=== PATIENT | male | born 1965 | race Caucasian/White ===

== ENCOUNTER 2017-02-06 14:53 | Inpatient (IN) | payer OTHER ==
[~2017-02-06] VITALS: Ht 195.6 cm; Wt 140.5 kg
[2017-02-06 21:15] VITALS: BP 111/59; PULSE 84; RESP 19
[2017-02-06 22:30] VITALS: Ht 195.6 cm; Wt 140.5 kg
[2017-02-06] MEDS ORDERED: [UNRECOGNIZED DRUG - CODE] SC (23:52)
[2017-02-06] MEDS ORDERED: ACET-2158 GTB (23:52)
[2017-02-06] MEDS ORDERED: AMLO2.5T78 GTB (23:52)
[2017-02-06] MEDS ORDERED: LACHYD12 TOP (23:52)
[2017-02-06] MEDS ORDERED: CLOT15CR55 TOP (23:52)
[2017-02-06] MEDS ORDERED: LACT1TAB11 GTB (23:52)
[2017-02-06] MEDS ORDERED: FURO40TA4 GTB (23:52)
[2017-02-06] MEDS ORDERED: IPRA3AMP INHALATION (23:52)
[2017-02-06] MEDS ORDERED: LISI40TA9 GTB (23:52)
[2017-02-06] MEDS ORDERED: TRAM50TA2 GTB (23:52)
[2017-02-06] MEDS ORDERED: DOCU50LI11 GTB (23:52)
[2017-02-06] MEDS ORDERED: LEVE100S GTB (23:52)
[2017-02-06] MEDS ORDERED: TEMA30CA GTB (23:52)
[2017-02-06] MEDS ORDERED: MAGN400O4 GTB (23:52)
[2017-02-06] MEDS ORDERED: BUSP5TAB20 (23:52)
[2017-02-06] MEDS ORDERED: LANT3I SC (23:52)
[2017-02-07] MEDS ORDERED: GLUCOSE GEL 15 GRAM TUBE BUCCAL PRN
[2017-02-07] MEDS ORDERED: GLUCOSE GEL 15 GRAM TUBE PO PRN ×2
[2017-02-07] MEDS ORDERED: GLUCAGON 1 MG INJ IM PRN
[2017-02-07] MEDS ORDERED: DEXTROSE 50% 50 ML SYRINGE IV PRN ×2
[2017-02-07] MEDS: DEXTROSE 5%-0.45% NACL 1,000 ML IV SCH (00:16)
[2017-02-07] MEDS: INSULIN ASPART [NOVOLOG] 3 ML PEN SC SCH ×6 (01:00→21:00)
[2017-02-07] MEDS: ALBUTEROL/IPRATROPIUM (NEB) 3 ML AMP INH SCH ×3 (02:00→19:29)
[2017-02-07] MEDS ORDERED: NACL 0.9% 3 ML SYG IV SCH (02:30)
[2017-02-07] MEDS ORDERED: ONDANSETRON 4 MG INJ IV PRN ×2 (02:30→13:00)
[2017-02-07] MEDS ORDERED: hydrALAzine 20 MG INJ IV PRN ×2 (02:30→13:00)
--- NOTE | 2017-02-07 02:34 | HP ---
Date/Time of Note Date/Time of Note DATE: 02/07/17 TIME: 02:27 Assessment/Plan VTE Prophylaxis VTE Prophylaxis Intervention: heparin Lines/Catheters IV Catheter Type (from [facility]): Peripheral IV Central line still needed: No Urinary Cath still in place: No Assessment/Plan Chief Complaint/Hosp Course This is a 51-year-old male being admitted to [facility] floor for: #1 malnutrition/food intolerance: Patient's G-tube was removed. He is not able to swallow orally secondary to his CVA. Patient will need another G-tube placed. Will consult GI. We will switch some of his medications to IV: And resume other G-tube medications once the G-tube is in place. #2 CVA: Based on his history it appears that he suffered CVA in October 2016 resulting in complete right-sided upper and lower extremity paralysis. Continue supportive care at this time. #3 diabetes: Patient is currently n.p.o. we will put patient on D5 half-normal saline at 50 cc an hour. Start him on insulin sliding scale coverage #4 hypertension: Hold G-tube medication at this time, will put patient on hydralazine 10 mg IV every 6 hours as needed. Hold amlodipine, lisinopril #5 seizure prophylaxis: We will put patient on Keppra 1000 mg IV every 12 hours as discussed with pharmacy based on his oral dose. #6 anxiety: Hold buspirone, will put patient on IV Ativan 0.5 mg as needed #7 DVT GI prophylaxis: Heparin subq, Protonix Problems: HPI/ROS Admit Date/Time Admit Date/Time February 06, 2017 at 20:46 Hx of Present Illness This is a 51-year-old [facility]. Patient has been residing at a [facility] after experiencing a stroke in October 2016. As result of the CVA he was left paralyzed on the right side. Patient had a G-tube put in secondary to dysfunctioning of swallowing secondary likely to a CVA. He states that the G-tube just fell out. Patient also is trached. Allergies: None Medications: See MAR ROS Const: Negative for fever, chills, weight gain or weight loss, fatigue, or diaphoresis Eyes : No pain discharge or redness or change in visual acuity ENT: No pain, sore throat, congestion, congestion, dysphagia or discharge Respiratory: No shortness of breath, cough, sputum, wheezing, or pleuritic pain Cardiovascular: No chest pain, palpitation, PND, or edema GI : Negative except for what stated in the HPI Genitourinary: No dysuria, hematuria, flank pain , discharge or CVA tenderness Musculoskeletal: No joint pain, back pain, neck pain, restricted range of motion in neck or joints Skin: No rash, bruising or hives Neuro: No headache, dizziness, syncope, seizure, focal weakness Endocrine: No polyuria, polydipsia, temperature intolerance Psych: No hallucination, depression, anxiety or suicidal ideation PMH/Family/Social Past Medical History CVA, hypertension, diabetes mellitus, Past Surgical History Trach placement, G-tube placement Family History Significant Family History: no pertinent family hx Social History Smoking Status: Former smoker (1 pack per day 40 years, last cigarette he had was in October 2016) Exam/Review of Systems Vital Signs Vitals Vital Signs Date Time Temp Pulse Resp B/P Pulse Ox O2 Delivery O2 Flow Rate FiO2 02/06/17 21:15 97.8 84 19 111/59 96 02/06/17 21:10 5.0 28 Exam Exam General: This is an obese male in no acute distress The patient is alert oriented -3 HEENT: Atraumatic, normocephalic. The pupils are equal, round and reactive. Extraocular motor are intact, very poor dentition Neck: Supple with full range of motion. No rigidity or meningismus, trach in place Chest: Nontender Lungs: Clear to auscultation bilaterally no crackles rales or wheezing Heart: Normal S1-S2, Regular rhythm and rate. Abdomen: Soft , nontender, nondistended , bowel sounds are present. Previous site of G-tube insertion covered clean dry and intact Extremities: Normal to inspection, no edema no cyanosis, strength 5 out of 5 in the upper left and right extremities, strength 0 out of 5 in the right upper and lower extremity Neurologic: Patient is paralyzed on the right side secondary to CVA, patient also does appear to have some memory lapses. Medications Medications Current Medications Dextrose/Sodium Chloride (D5-1/2ns) 1,000 ml @ 75 mls/hr [id number] IV Last administered on 02/07/17t 00:16; Admin Dose 75 MLS/HR; Start 02/07/17 at 00:00 Insulin Aspart (Novolog Insulin Pen) NOVOLOG *MILD* ALGORI... Q4 SC ; Start 02/07 at 01:00 Miscellaneous Information 1 ea NOTE XX ; Start 02/07/17 at 00:00 Glucose (Glutose) 15 gm Q15M PRN PO DECREASED GLUCOSE; Start 02/07/17 at 00:00 Glucose (Glutose) 22.5 gm Q15M PRN PO DECREASED GLUCOSE; Start 02/07/17 at 00:00 Dextrose (D50w Syringe) 25 ml Q15M PRN IV DECREASED GLUCOSE; Start 02/07/17 at 00:00 Dextrose (D50w Syringe) 50 ml Q15M PRN IV DECREASED GLUCOSE; Start 02/07/17 at 00:00 Glucagon (Glucagen) 1 mg Q15M PRN IM DECREASED GLUCOSE; Start 02/07/17 at 00:00 Glucose (Glutose) 15 gm Q15M PRN BUCCAL DECREASED GLUCOSE; Start 02/07/17 at 00: 00 Ammonium Lactate (Lac-Hydrin 12% Lotion) 1 applic BID TOP ; Start 02/07/17 at 03: 00 Clotrimazole (Lotrimin Cr) 1 applic DAILY TOP ; Start 02/07/17 at 09:00 Insulin Glargine 13 unit 13 unit QHS SC ; Start 02/07/17 at 21:00 Levetiracetam (Keppra 1,000mg/ 100ml (Pmx)) 100 ml @ 400 mls/hr Q12 IVPB ; Start 02/07/17 at 03:00 Ondansetron HCl (Zofran Inj) 4 mg Q6H PRN IV NAUSEA AND/OR VOMITING; Start 02/07 at 02:30 Pantoprazole (Protonix Iv) 40 mg DAILY@06 IV ; Start 02/07/17 at 06:00 Heparin Sodium (Porcine) (Heparin (5000 Units/0.5 ml)) 5,000 unit Q8 SC ; Start 02/07/17 at 06:00 Hydralazine HCl (Apresoline) 10 mg Q8H PRN IV ELEVATED BLOOD PRESSURE; Start at 02:30 IRENE ANNE February 07, 2017 02:34
[2017-02-07] MEDS ORDERED: LORAZEPAM 2 MG INJ IV PRN (03:00)
[2017-02-07 03:12] LABS: ADD SCAN DIFF NO
[2017-02-07 03:36] LABS: BASOPHILS % 0.4 % (0.0-2.0); EOSINOPHILS # 0.1 10^3/ul (0.0-0.5); EOSINOPHILS % 1.1 % (0.0-7.0); HEMOGLOBIN 11.4 g/dl (14.0-18.0); LYMPHOCYTES # 1.4 10^3/ul (0.8-2.9); LYMPHOCYTES % 20.2 % (15.0-51.0); MEAN CORPUSCULAR HEMOGLOBIN 31.3 pg (29.0-33.0); MEAN CORPUSCULAR HGB CONC 33.5 g/dl (32.0-37.0); MEAN CORPUSCULAR VOLUME 93.4 fl (82.0-101.0); MEAN PLATELET VOLUME 9.8 fl (7.4-10.4); MONOCYTE # 0.6 10^3/ul (0.3-0.9); NEUTROPHIL # 4.8 10^3/ul (1.6-7.5); NEUTROPHILS % 68.2 % (39.0-77.0); PLATELET COUNT 248 10^3/UL (140-415); RED BLOOD COUNT 3.64 10^6/ul (4.70-6.10); RED CELL DISTRIBUTION WIDTH 12.7 % (11.5-14.5)
[2017-02-07 03:37] LABS: INR 1.02; PARTIAL THROMBOPLASTIN TIME 35.4 Sec (25.0-35.0); POTASSIUM 3.8 mmol/L (3.5-5.1); PROTIME 13.4 Sec (12.2-14.2)
[2017-02-07 03:40] LABS: CREATININE 1.09 mg/dl (0.61-1.24)
[2017-02-07 03:41] LABS: CALCIUM 9.7 mg/dl (8.4-10.2)
[2017-02-07] MEDS: LEVETIRACETAM 1000 MG (PMX) 100 ML IVPB SCH ×3 (05:18→21:13)
[2017-02-07] MEDS: PANTOPRAZOLE 40 MG INJ IV SCH (05:44)
[2017-02-07] MEDS: AMMONIUM LACTATE 12% 225 GM LOT TOP SCH ×3 (05:44→21:13)
[2017-02-07] MEDS: HEPARIN 5,000 UNIT/0.5 ML VIAL SC SCH ×3 (05:54→21:37)
[2017-02-07 07:51] VITALS: BP 89/51; RESP 22
[2017-02-07] MEDS ORDERED: CEFAZOLIN 2 GM in SOD CHLORIDE 0.9% 50 ML IVPB ONE (08:30)
[2017-02-07] MEDS: CLOTRIMAZOLE 1% 30 GM CR TOP SCH (10:04)
--- NOTE | 2017-02-07 11:02 | PN ---
DATE: 02/07/2017 SUBJECTIVE: Mr. Rasuch remains stable. No new events this morning, pending GI evaluation for G- tube replacement. He is awake, alert, comfortable, in no acute distress. VITAL SIGNS: Temperature 98, pulse 72, blood pressure 90/50, O2 saturation 96% on cool aerosol. NECK: Trach site clean and intact. CARDIAC: S1, S2, no added sounds or murmurs. CHEST: Diminished air entry bilaterally. ABDOMEN: Soft, nontender. No guarding or rebound. EXTREMITIES: No cyanosis, clubbing, edema. NEUROLOGIC: Generalized weakness. IMPRESSION AND PLAN: 1. History of chronic respiratory failure with tracheostomy. 2. History of cerebrovascular accident with hemiplegia. 3. G-tube malfunction. 4. History of hypertension. PLAN: 1. G-tube to be replaced today by Dr. Boyce. 2. Initiate tube feeding as tolerated. 3. Continue pulmonary toilet. 4. Deep venous thrombosis and gastrointestinal prophylaxis. 5. Anticipate discharge tomorrow. Dictated By: KELLY MAYO/BRAYAN Conf#: [id number] DID#: [id number]
--- NOTE | 2017-02-07 11:50 | CONS ---
Date/Time of Note Date/Time of Note DATE: 02/07/17 TIME: 11:47 Assessment/Plan Assessment/Plan Additional Assessment/Plan Assessment recommendations; next 1. Patient admitted for G-tube dislodgment status post replacement. 2. Chronic respiratory failure, maintained on tracheostomy with Passy-Underhill valve. 3. History of CVA, diabetes, hypertension, seizure disorder. 4. Currently no evidence of any infective process. Continue current treatment. [facility] Consider decannulation of tracheostomy. Consultation Date/Type/Reason Admit Date/Time February 06, 2017 at 20:46 Date of Consultation: February 07, 2017 Type of Consultation: Pulmonary Reason for Consultation Pulmonary consultations obtained for evaluation of chronic respiratory failure. History presenting any; patient is a 51-year-old male who was admitted yesterday [facility] with G-tube dislodgment. Patient had a subsequent replacement. He denies any shortness of breath, chest pain, abdominal pain, nausea vomiting. Denies any fever chills. Past medical history; 1. Patient with history of chronic respiratory failure, maintained on tracheostomy with Passy-Underhill valve. 2. History of CVA with resulting dense right hemiplegia. 3. History of diabetes, hypertension, seizure disorder. 4. History of G-tube placement. Medications; were reviewed. Allergies; none. Family history; various family members of diabetes hypertension in the family Occupational history; patient currently on disability. Review systems; patient denies any headache, visual changes. Denies any recent seizure activity. Place of chronic dysphagia. Denies any chest pain, shortness of breath. Any wheezing. Cough or sputum production. Denies abdominal pain, nausea vomiting. Any fever chills. General exam; middle-aged male, awake alert currently in no distress. Social History Smoking Status: Former smoker (1 pack per day 40 years, last cigarette he had was in October 2016) Exam/Review of Systems Vital Signs Vitals Vital Signs Date Time Temp Pulse Resp B/P Pulse Ox O2 Delivery O2 Flow Rate FiO2 02/07/17 08:57 72 12 Aerosol 5.0 28 02/07/17 07:51 98.3 89/51 96 Intake and Output 02/06/17 02/06/17 02/07/17 15:00 23:00 07:00 Intake Total 550 ml Balance 550 ml Exam HEENT exam is; supple neck, no JVD. No lymphadenopathy. Midline trachea. No thyromegaly. Patient's dentition is fair. Pupils are small bilaterally reactive to light. No thyromegaly. No neck bruits. No neck masses. Chest examination; clear to auscultation. There is a tracheostomy in place with clean insertion site. S1-S2 audible, no murmurs. Regular rhythm. Abdomen examination; soft, nontender. No organomegaly. Normal distended. G- tube in place. Extremity examination; no peripheral edema. Pulses 1+ bilaterally. ACID LOADER examination; patient has dense right hemiplegia. Results Result Diagram: 02/07/17 0240 02/07/17 0240 Results 24 hrs Laboratory Tests Test 02/06/17 22:59 02/07/17 01:41 02/07/17 02:40 02/07/17 05:47 Bedside Glucose 112 113 116 White Blood Count 7.0 Red Blood Count 3.64 L Hemoglobin 11.4 L Hematocrit 34.0 L Mean Corpuscular Volume 93.4 Mean Corpuscular Hemoglobin 31.3 Mean Corpuscular Hemoglobin Concent 33.5 Red Cell Distribution Width 12.7 Platelet Count 248 Mean Platelet Volume 9.8 Neutrophils % 68.2 Lymphocytes % 20.2 Monocytes % 9.0 Eosinophils % 1.1 Basophils % 0.4 Nucleated Red Blood Cells % 0.0 Neutrophils # 4.8 Lymphocytes # 1.4 Monocytes # 0.6 Eosinophils # 0.1 Basophils # 0.0 Nucleated Red Blood Cells # 0.0 Prothrombin Time 13.4 Prothrombin Time Ratio 1.0 INR International Normalized Ratio 1.02 Activated Partial Thromboplast Time 35.4 H Sodium Level 140 Potassium Level 3.8 Chloride Level 95 L Carbon Dioxide Level 31 Anion Gap 18 H Blood Urea Nitrogen 36 H Creatinine 1.09 Glucose Level 148 Calcium Level 9.7 Test 02/07/17 09:11 Bedside Glucose 150 Medications Medications Current Medications Dextrose/Sodium Chloride (D5-1/2ns) 1,000 ml @ 75 mls/hr [id number] IV Last administered on 02/07/17t 00:16; Admin Dose 75 MLS/HR; Start 02/07/17 at 00:00 Insulin Aspart (Novolog Insulin Pen) NOVOLOG *MILD* ALGORI... Q4 SC ; Start 02/07 at 01:00 Miscellaneous Information 1 ea NOTE XX ; Start 02/07/17 at 00:00 Glucose (Glutose) 15 gm Q15M PRN PO DECREASED GLUCOSE; Start 02/07/17 at 00:00 Glucose (Glutose) 22.5 gm Q15M PRN PO DECREASED GLUCOSE; Start 02/07/17 at 00:00 Dextrose (D50w Syringe) 25 ml Q15M PRN IV DECREASED GLUCOSE; Start 02/07/17 at 00:00 Dextrose (D50w Syringe) 50 ml Q15M PRN IV DECREASED GLUCOSE; Start 02/07/17 at 00:00 Glucagon (Glucagen) 1 mg Q15M PRN IM DECREASED GLUCOSE; Start 02/07/17 at 00:00 Glucose (Glutose) 15 gm Q15M PRN BUCCAL DECREASED GLUCOSE; Start 02/07/17 at 00: 00 Ammonium Lactate (Lac-Hydrin 12% Lotion) 1 applic BID TOP Last administered on 02/07/17 05:44; Admin Dose 1 APPLIC; Start 02/07/17 at 03:00 Clotrimazole (Lotrimin Cr) 1 applic DAILY TOP Last administered on 02/07/17 10: 04; Admin Dose 1 APPLIC; Start 02/07/17 at 09:00 Insulin Glargine 13 unit 13 unit QHS SC ; Start 02/07/17 at 21:00 Levetiracetam (Keppra 1,000mg/ 100ml (Pmx)) 100 ml @ 400 mls/hr Q12 IVPB Last administered on 02/07/17 10:05; Admin Dose 400 MLS/HR; Start 02/07/17 at 03:00 Ondansetron HCl (Zofran Inj) 4 mg Q6H PRN IV NAUSEA AND/OR VOMITING; Start 02/07 at 02:30 Pantoprazole (Protonix Iv) 40 mg DAILY@06 IV Last administered on 02/07/17 05: 44; Admin Dose 40 MG; Start 02/07/17 at 06:00 Heparin Sodium (Porcine) (Heparin (5000 Units/0.5 ml)) 5,000 unit Q8 SC Last administered on 02/07/17 05:54; Admin Dose 5,000 UNIT; Start 02/07/17 at 06:00 Hydralazine HCl (Apresoline) 10 mg Q8H PRN IV ELEVATED BLOOD PRESSURE; Start at 02:30 Lorazepam (Ativan) 0.5 mg Q8H PRN IV ANXIETY; Start 02/07/17 at 03:00 JASKARAN FINNEY February 07, 2017 11:50
[2017-02-07] MEDS ORDERED: CEFAZOLIN 2 GM/50 ML (PMX) 50 ML IVPB ONE (12:35)
[2017-02-07] MEDS ORDERED: LABETALOL HCL 20MG INJ IV PRN (13:00)
[2017-02-07] MEDS ORDERED: ALBUTEROL 0.083% (NEB) 2.5 MG/3 ML AMP HHN ONE (13:00)
[2017-02-07] MEDS ORDERED: EPHEDrine SULFATE 50 MG/5 ML SYG IV PRN (13:00)
[2017-02-07] MEDS ORDERED: INSULIN ASPART [NOVOLOG] 3 ML PEN SC ONE (13:00)
[2017-02-07] MEDS ORDERED: FENTAnyl 50 MCG/ML VIAL IV PRN ×2 (13:00)
[2017-02-07] MEDS ORDERED: LIDOCAINE 2% (SDV) 5 ML INJ ONE (13:07)
[2017-02-07] MEDS ORDERED: PROPOFOL 20 ML ONE (13:07)
[2017-02-07] MEDS ORDERED: MIDAZOLAM 1 MG/ML 2 ML INJ ONE (13:08)
[2017-02-07] MEDS ORDERED: FENTAnyl 50 MCG/ML VIAL ONE (13:08)
[2017-02-07 13:13] VITALS: BP 104/51; PULSE 67; RESP 18
--- NOTE | 2017-02-07 13:15 | CONS ---
Date/Time of Note Date/Time of Note DATE: 02/07/17 TIME: 13:06 Assessment/Plan Assessment/Plan Additional Assessment/Plan Assessment: Accidental displacement of gastrostomy tube Post CVA October 2016/right-sided hemiparesis Post tracheostomy and gastrostomy History of cirrhosis of the liver post TIPS History of diabetes mellitus History of hypertension Seizure disorder Plan: EGD with PEG replacement Further recommendation will depend on findings. Consultation Date/Type/Reason Admit Date/Time February 06, 2017 at 20:46 Date of Consultation: February 07, 2017 Reason for Consultation Accidental displacement of gastrostomy tube Enteral feeding required Hx of Present Illness 51-year-old man transferred after accidental dislodgment of gastrostomy tube and inability to replace. The patient depends on enteral feeding support. Patient status post CVA that resulted in respiratory failure with tracheostomy placement and gastrostomy placement for feeding purposes. Of note the patient has a history of cirrhosis of the liver and is status post TIPS. The patient is currently asymptomatic and agreeable to EGD with PEG Constitutional: improved, no complaints Eyes: no complaints ENT: no complaints Respiratory: no complaints Cardiovascular: no complaints Gastrointestinal: no complaints Genitourinary: no complaints Musculoskeletal: no complaints Skin: no complaints Neurologic: no complaints Endocrine: no complaints Lymphatic: no complaints Psychological: nl mood/affect, no complaints Immunologic: no complaints Past Medical History * Post CVA * Post tracheostomy and gastrostomy * History of cirrhosis of the liver post TIPS * History of hypertension * History of diabetes * Anxiety disorder Past Surgical History * Tracheostomy * PEG * TIPS Family History Significant Family History: no pertinent family hx Social History Alcohol Use: sober Smoking Status: Former smoker (1 pack per day 40 years, last cigarette he had was in October 2016) Drug Use: none Exam/Review of Systems Vital Signs Vitals Vital Signs Date Time Temp Pulse Resp B/P Pulse Ox O2 Delivery O2 Flow Rate FiO2 02/07/17 08:57 72 12 Aerosol 5.0 28 02/07/17 07:51 98.3 89/51 96 Intake and Output 02/06/17 02/06/17 02/07/17 15:00 23:00 07:00 Intake Total 550 ml Balance 550 ml Exam Constitutional: alert, oriented, well developed Psych: nl mood/affect, no complaints Head: atraumatic, normocephalic Eyes: EOMI, PERRL, nl conjunctiva, nl lids, nl sclera ENMT: nl external ears & nose, nl lips & teeth, nl nasal mucosa & septum Neck: non-tender, other (Tracheostomy in place), supple Respiratory: clear to auscultation, normal air movement Cardiovascular: nl pulses, regular rate and rhythm Gastrointestinal: nl liver, spleen, non-tender, other (Previous gastrostomy site almost completely closed), soft, No ascites, No distended, No firm, No hepatomegaly, No mass, No rebound or guarding, No tender Musculoskeletal: nl extremities to inspection, nl gait and stance Extremities: normal pulses Skin: nl turgor, No rash or lesions Lymph: nl lymph nodes Results Result Diagram: 02/07/17 0240 02/07/17 0240 Results 24 hrs Laboratory Tests Test 02/06/17 22:59 02/07/17 01:41 02/07/17 02:40 02/07/17 05:47 Bedside Glucose 112 113 116 White Blood Count 7.0 Red Blood Count 3.64 L Hemoglobin 11.4 L Hematocrit 34.0 L Mean Corpuscular Volume 93.4 Mean Corpuscular Hemoglobin 31.3 Mean Corpuscular Hemoglobin Concent 33.5 Red Cell Distribution Width 12.7 Platelet Count 248 Mean Platelet Volume 9.8 Neutrophils % 68.2 Lymphocytes % 20.2 Monocytes % 9.0 Eosinophils % 1.1 Basophils % 0.4 Nucleated Red Blood Cells % 0.0 Neutrophils # 4.8 Lymphocytes # 1.4 Monocytes # 0.6 Eosinophils # 0.1 Basophils # 0.0 Nucleated Red Blood Cells # 0.0 Prothrombin Time 13.4 Prothrombin Time Ratio 1.0 INR International Normalized Ratio 1.02 Activated Partial Thromboplast Time 35.4 H Sodium Level 140 Potassium Level 3.8 Chloride Level 95 L Carbon Dioxide Level 31 Anion Gap 18 H Blood Urea Nitrogen 36 H Creatinine 1.09 Glucose Level 148 Calcium Level 9.7 Test 02/07/17 09:11 Bedside Glucose 150 Medications Medications Current Medications Dextrose/Sodium Chloride (D5-1/2ns) 1,000 ml @ 75 mls/hr [id number] IV Last administered on 02/07/17t 00:16; Admin Dose 75 MLS/HR; Start 02/07/17 at 00:00 Insulin Aspart (Novolog Insulin Pen) NOVOLOG *MILD* ALGORI... Q4 SC ; Start 02/07 at 01:00 Miscellaneous Information 1 ea NOTE XX ; Start 02/07/17 at 00:00 Glucose (Glutose) 15 gm Q15M PRN PO DECREASED GLUCOSE; Start 02/07/17 at 00:00 Glucose (Glutose) 22.5 gm Q15M PRN PO DECREASED GLUCOSE; Start 02/07/17 at 00:00 Dextrose (D50w Syringe) 25 ml Q15M PRN IV DECREASED GLUCOSE; Start 02/07/17 at 00:00 Dextrose (D50w Syringe) 50 ml Q15M PRN IV DECREASED GLUCOSE; Start 02/07/17 at 00:00 Glucagon (Glucagen) 1 mg Q15M PRN IM DECREASED GLUCOSE; Start 02/07/17 at 00:00 Glucose (Glutose) 15 gm Q15M PRN BUCCAL DECREASED GLUCOSE; Start 02/07/17 at 00: 00 Ammonium Lactate (Lac-Hydrin 12% Lotion) 1 applic BID TOP Last administered on 02/07/17 12:10; Admin Dose 1 APPLIC; Start 02/07/17 at 03:00 Clotrimazole (Lotrimin Cr) 1 applic DAILY TOP Last administered on 02/07/17 10: 04; Admin Dose 1 APPLIC; Start 02/07/17 at 09:00 Insulin Glargine 13 unit 13 unit QHS SC ; Start 02/07/17 at 21:00 Levetiracetam (Keppra 1,000mg/ 100ml (Pmx)) 100 ml @ 400 mls/hr Q12 IVPB Last administered on 02/07/17 10:05; Admin Dose 400 MLS/HR; Start 02/07/17 at 03:00 Ondansetron HCl (Zofran Inj) 4 mg Q6H PRN IV NAUSEA AND/OR VOMITING; Start 02/07 at 02:30 Pantoprazole (Protonix Iv) 40 mg DAILY@06 IV Last administered on 02/07/17 05: 44; Admin Dose 40 MG; Start 02/07/17 at 06:00 Heparin Sodium (Porcine) (Heparin (5000 Units/0.5 ml)) 5,000 unit Q8 SC Last administered on 02/07/17 05:54; Admin Dose 5,000 UNIT; Start 02/07/17 at 06:00 Hydralazine HCl (Apresoline) 10 mg Q8H PRN IV ELEVATED BLOOD PRESSURE; Start at 02:30 Lorazepam (Ativan) 0.5 mg Q8H PRN IV ANXIETY; Start 02/07/17 at 03:00 SHERYL BAE MD February 07, 2017 13:15
[2017-02-07 14:10] VITALS: BP 115/61; PULSE 65; RESP 18
[2017-02-07 14:33] VITALS: BP 110/58; PULSE 64; RESP 17
[2017-02-07 19:40] VITALS: BP 111/58; RESP 18
[2017-02-07] MEDS ORDERED: INSULIN GLARGINE [LANtus] 3 ML PEN SC SCH (21:00)
[2017-02-08] MEDS: ALBUTEROL/IPRATROPIUM (NEB) 3 ML AMP INH SCH ×3 (01:00→14:30)
[2017-02-08] MEDS: INSULIN ASPART [NOVOLOG] 3 ML PEN SC SCH ×5 (01:16→16:33)
[2017-02-08] MEDS: PANTOPRAZOLE 40 MG INJ IV SCH (05:11)
[2017-02-08 05:53] LABS: ADD SCAN DIFF NO
[2017-02-08 06:30] LABS: BASOPHILS % 0.4 % (0.0-2.0); EOSINOPHILS # 0.1 10^3/ul (0.0-0.5); EOSINOPHILS % 0.9 % (0.0-7.0); HEMATOCRIT 32.2 % (42.0-52.0); HEMOGLOBIN 10.5 g/dl (14.0-18.0); LYMPHOCYTES # 1.3 10^3/ul (0.8-2.9); LYMPHOCYTES % 24.4 % (15.0-51.0); MEAN CORPUSCULAR HGB CONC 32.6 g/dl (32.0-37.0); MEAN PLATELET VOLUME 9.9 fl (7.4-10.4); MONOCYTE # 0.5 10^3/ul (0.3-0.9); MONOCYTES % 8.8 % (0.0-11.0); NEUTROPHIL # 3.4 10^3/ul (1.6-7.5); NEUTROPHILS % 64.4 % (39.0-77.0); PLATELET COUNT 210 10^3/UL (140-415); RED BLOOD COUNT 3.39 10^6/ul (4.70-6.10); RED CELL DISTRIBUTION WIDTH 13.1 % (11.5-14.5); WHITE BLOOD COUNT 5.3 10^3/ul (4.8-10.8)
[2017-02-08 06:48] LABS: ALBUMIN 3.9 g/dl (3.3-4.9)
[2017-02-08 06:51] LABS: ALBUMIN/GLOBULIN RATIO 0.97; BILIRUBIN,INDIRECT 0.2 mg/dl (0-1.1); BILIRUBIN,TOTAL 0.2 mg/dl (0.2-1.3); CREATININE 1.16 mg/dl (0.61-1.24); TOTAL PROTEIN 7.9 g/dl (6.1-8.1)
[2017-02-08 06:52] LABS: CALCIUM 9.6 mg/dl (8.4-10.2)
[2017-02-08 07:48] VITALS: BP 100/54; RESP 20
[2017-02-08] MEDS: LEVETIRACETAM 1000 MG (PMX) 100 ML IVPB SCH (08:25)
[2017-02-08] MEDS: HEPARIN 5,000 UNIT/0.5 ML VIAL SC SCH ×2 (08:27→14:57)
[2017-02-08] MEDS: AMMONIUM LACTATE 12% 225 GM LOT TOP SCH (08:28)
--- NOTE | 2017-02-08 09:34 | CONS ---
Date/Time of Note Date/Time of Note DATE: 02/08/17 TIME: 09:26 Assessment/Plan Assessment/Plan Additional Assessment/Plan Assessment: Accidental displacement of gastrostomy tube, resolved Post CVA October 2016/right-sided hemiparesis s/p tracheostomy and gastrostomy History of cirrhosis of the liver post TIPS History of diabetes mellitus History of hypertension Seizure disorder Plan: Monitor tube feed daily, hold tube feeds for residual >150 mL Abdominal binder at all to Cleanse and change dressing daily Further recommendations depend on clinical course Patient seen in collaboration with Consultation Date/Type/Reason Admit Date/Time February 06, 2017 at 20:46 Initial Consult Date 02/07/17 Type of Consultation: Gastroenterology 24 HR Interval Summary Free Text/Dictation Tube feed at 50 with minimal residual Exam/Review of Systems Vital Signs Vitals Vital Signs Date Time Temp Pulse Resp B/P Pulse Ox O2 Delivery O2 Flow Rate FiO2 02/08/17 07:48 97.6 60 20 100/54 99 02/08/17 01:01 Aerosol 5.0 28 Intake and Output 02/07/17 02/07/17 02/08/17 15:00 23:00 07:00 Intake Total 775 ml 900 ml Balance 775 ml 900 ml Exam Constitutional: alert, oriented, well developed Psych: nl mood/affect, no complaints Head: atraumatic, normocephalic Eyes: EOMI, PERRL, nl conjunctiva, nl lids, nl sclera ENMT: nl external ears & nose, nl lips & teeth, nl nasal mucosa & septum Neck: non-tender, other (Tracheostomy in place), supple Respiratory: clear to auscultation, normal air movement Cardiovascular: nl pulses, regular rate and rhythm Gastrointestinal: nl liver, spleen, non-tender, soft, No ascites, No distended, No firm, No hepatomegaly, No mass, No rebound or guarding, No tender Musculoskeletal: nl extremities to inspection, Skin: nl turgor, No rash or lesions Results Result Diagram: 02/08/17 0543 02/08/17 0543 Results 24 hrs Laboratory Tests Test 02/07/17 15:33 02/07/17 17:04 02/07/17 21:10 02/08/17 01:08 Bedside Glucose 121 115 110 116 Test 02/08/17 05:09 02/08/17 05:43 02/08/17 08:22 Bedside Glucose 125 137 White Blood Count 5.3 # Red Blood Count 3.39 L Hemoglobin 10.5 L Hematocrit 32.2 L Mean Corpuscular Volume 95.0 Mean Corpuscular Hemoglobin 31.0 Mean Corpuscular Hemoglobin Concent 32.6 Red Cell Distribution Width 13.1 Platelet Count 210 Mean Platelet Volume 9.9 Neutrophils % 64.4 Lymphocytes % 24.4 Monocytes % 8.8 Eosinophils % 0.9 Basophils % 0.4 Nucleated Red Blood Cells % 0.0 Neutrophils # 3.4 Lymphocytes # 1.3 Monocytes # 0.5 Eosinophils # 0.1 Basophils # 0.0 Nucleated Red Blood Cells # 0.0 Sodium Level 142 Potassium Level 4.0 Chloride Level 98 Carbon Dioxide Level 31 Anion Gap 17 H Blood Urea Nitrogen 36 H Creatinine 1.16 Glucose Level 138 Calcium Level 9.6 Total Bilirubin 0.2 Direct Bilirubin 0.00 Indirect Bilirubin 0.2 Aspartate Amino Transf (AST/SGOT) 24 Alanine Aminotransferase (ALT/SGPT) 37 Alkaline Phosphatase 91 Total Protein 7.9 Albumin 3.9 Globulin 4.00 H Albumin/Globulin Ratio 0.97 Medications Medications Current Medications Dextrose/Sodium Chloride (D5-1/2ns) 1,000 ml @ 20 mls/hr Q24H IV Last administered on 02/07/17t 00:16; Admin Dose 75 MLS/HR; Start 02/07/17 at 00:00 Insulin Aspart (Novolog Insulin Pen) NOVOLOG *MILD* ALGORI... Q4 SC ; Start 02/07 at 01:00 Miscellaneous Information 1 ea NOTE XX ; Start 02/07/17 at 00:00 Glucose (Glutose) 15 gm Q15M PRN PO DECREASED GLUCOSE; Start 02/07/17 at 00:00 Glucose (Glutose) 22.5 gm Q15M PRN PO DECREASED GLUCOSE; Start 02/07/17 at 00:00 Dextrose (D50w Syringe) 25 ml Q15M PRN IV DECREASED GLUCOSE; Start 02/07/17 at 00:00 Dextrose (D50w Syringe) 50 ml Q15M PRN IV DECREASED GLUCOSE; Start 02/07/17 at 00:00 Glucagon (Glucagen) 1 mg Q15M PRN IM DECREASED GLUCOSE; Start 02/07/17 at 00:00 Glucose (Glutose) 15 gm Q15M PRN BUCCAL DECREASED GLUCOSE; Start 02/07/17 at 00: 00 Ammonium Lactate (Lac-Hydrin 12% Lotion) 1 applic BID TOP Last administered on 02/08/17 08:28; Admin Dose 1 APPLIC; Start 02/07/17 at 03:00 Clotrimazole (Lotrimin Cr) 1 applic DAILY TOP Last administered on 02/07/17 10: 04; Admin Dose 1 APPLIC; Start 02/07/17 at 09:00 Insulin Glargine 13 unit 13 unit QHS SC Last administered on 02/07/17 21:36; Admin Dose 13 UNIT; Start 02/07/17 at 21:00 Levetiracetam (Keppra 1,000mg/ 100ml (Pmx)) 100 ml @ 400 mls/hr Q12 IVPB Last administered on 02/08/17 08:25; Admin Dose 400 MLS/HR; Start 02/07/17 at 03:00 Ondansetron HCl (Zofran Inj) 4 mg Q6H PRN IV NAUSEA AND/OR VOMITING; Start 02/07 at 02:30 Pantoprazole (Protonix Iv) 40 mg DAILY@06 IV Last administered on 02/08/17 05: 11; Admin Dose 40 MG; Start 02/07/17 at 06:00 Heparin Sodium (Porcine) (Heparin (5000 Units/0.5 ml)) 5,000 unit Q8 SC Last administered on 02/08/17 08:27; Admin Dose 5,000 UNIT; Start 02/07/17 at 06:00 Hydralazine HCl (Apresoline) 10 mg Q8H PRN IV ELEVATED BLOOD PRESSURE; Start at 02:30 Lorazepam (Ativan) 0.5 mg Q8H PRN IV ANXIETY; Start 02/07/17 at 03:00 FERNANDA RIZO February 08, 2017 09:34
[2017-02-08] MEDS: CLOTRIMAZOLE 1% 30 GM CR TOP SCH (11:47)
[2017-02-08] MEDS: DEXTROSE 5%-0.45% NACL 1,000 ML IV SCH ×2 (13:02→13:20)
--- NOTE | 2017-02-08 14:11 | PDOCDIS ---
Discharge Instructions DIAGNOSIS Discharge Diagnosis: g tube replacement. CONDITION Patient Condition: Stable HOME CARE INSTRUCTIONS: Special Diet: gtube feeding FOLLOW UP/APPOINTMENTS Appointments primary care 1 week. KELLY AVELAR MD, [facility] February 08, 2017 14:11
--- NOTE | 2017-02-08 15:57 | DS ---
DATE OF ADMISSION: 02/06/2017 DATE OF DISCHARGE: 02/08/2017 DISCHARGE DIAGNOSES: Displaced G-tube. HOSPITAL COURSE: A 51-year-old gentleman with a history of chronic respiratory failure with tracheo stomy following history of CVA and dysphagia. His G-tube fell out and subsequently taken to the [facility] ([place], [place])ency room for evaluation. Here the patient was seen by Dr. Boyce. G-tube was replaced operative ly without complication and tube feeding started with no significant residuals. No problems tolerat ed. Patient discharged back to his prior living arrangements with continued tube feeding prior to a dmission CONDITION ON DISCHARGE: Stable. ACTIVITY: Bed rest. DIET: Fibersource tube feeding. Follow up with primary care physician. Dictated By: KELLY MAYO/BRAYAN Conf#: [id number] DID#: [id number]
--- NOTE | 2017-02-08 16:19 | GILP ---
DATE OF PROCEDURE: 02/07/2017 PROCEDURE: Esophagogastroduodenoscopy with percutaneous endoscopic gastrostomy tube placement. BRIEF HISTORY AND INDICATIONS: The patient with accidental dislodgement and failure to replace melissa rostomy tube. PREMEDICATION: Monitored anesthesia care by anesthesiologist. SURGEON: Sheryl Boyce MD INSTRUMENT USED: Olympus panendoscope. TECHNIQUE: After informed consent, with the patient and/or family members understanding the procedur e, its indications, potential risks and complications, including but not limited to: allergic reacti on, bleeding, perforation, infection or leakage, and after all pertinent questions were answered to the patient and/or family members satisfaction, the patient and/or family member signed witnessed in formed consent. Following this, premedication was administered slowly IV push, under careful cardiovascular and resp iratory monitoring with pulse oximetry, blood pressure and monitor technician. Once the sedative effect was achieved the patient was place in the supine position, the panendoscope was introduced and advanced under visual guidance. Careful examination of the upper gastrointestinal tract, on insertion as well as withdrawal of the i nstrument disclosed the following findings: ESOPHAGUS: The mucosa of the entire esophagus appears within normal limits. There is no evidence of esophagitis, varices, neoplasm or stricture. STOMACH: Upon entrance to the stomach air was insufflated, the gastric marshall distended normally. Th e mucosa of the fundus, body and antrum of the stomach was carefully examined both head-on and on re troflexion, and shows no abnormalities. There is no evidence of gastritis, ulcers or neoplasm. PYLORUS: The pylorus appears patent and within normal limits, with no evidence of gastric outlet ob struction. DUODENUM: The duodenal mucosa was carefully examined in the duodenal bulb as well as the second por tion of the duodenum and appears unremarkable with no evidence of duodenitis, ulcer or neoplasm. The instrument was then brought back to the stomach and the anterior wall mid-body was identified by transillumination and "finger indentation", this area was then marked in the anterior wall of the a bdomen, it was cleansed with Betadine and infiltrated with Xylocaine 1%. Following this a trocar nee dle was introduced into the gastric lumen under visual control with the endoscope, once in the gastr ic lumen a guide wire was advanced and secured with a polypectomy snare, at this point the endoscope was withdrawn bringing the guide wire out through the patients mouth. Following this a gastrostomy tube was introduced over the guide wire, with the Sacks-Vinne technique without difficulty, a small incision was performed in the skin to allow easy passage of the G-tube, once the position of the gas trostomy tube was confirmed, the external stopper and connectors were installed, and a clean dressin g applied. The patient tolerated the procedure well and was transferred out of the endoscopy suite awake, and i n good condition to continue recovery under observation, feedings will started in the next 12-24h an d gastrostomy care will be instituted. IMPRESSION: Uneventful percutaneous endoscopic gastrostomy tube placement with placement of Bengali 20 gastrostomy tube. PLAN: Feedings will be started as soon as possible. Further recommendation will depend on patient' s clinical course. Dictated By: SHERYL JONES Conf#: [id number] DID#: [id number]
== END 2017-02-08 17:55 | DRG 394 ==
LOC: MS2 20:46
PROVIDERS: ADMIT Internal Medicine Pulmonary Disease; ATTEND Internal Medicine Pulmonary Disease
PROC: 0DJ08ZZ Inspection of Upper Intestinal Tract, Via Natural or Artificial Opening Endoscopic (ICD-10-PCS; 2017-02-07)
PROC: 0DH63UZ Insertion of Feeding Device into Stomach, Percutaneous Approach (ICD-10-PCS; principal; 2017-02-07 13:00)
DX: K94.23 Gastrostomy malfunction (principal); I69.351 Hemiplegia and hemiparesis following cerebral infarction affecting right dominant side; J96.10 Chronic respiratory failure, unspecified whether with hypoxia or hypercapnia; R13.10 Dysphagia, unspecified; Z93.0 Tracheostomy status; Y84.8 Other medical procedures as the cause of abnormal reaction of the patient, or of later complication, without mention of misadventure at the time of the procedure; Y92.122 Bedroom in nursing home as the place of occurrence of the external cause; I10 Essential (primary) hypertension; Z87.891 Personal history of nicotine dependence; I69.391 Dysphagia following cerebral infarction; E11.9 Type 2 diabetes mellitus without complications; Z79.4 Long term (current) use of insulin; G40.909 Epilepsy, unspecified, not intractable, without status epilepticus
CPT/HCPCS: 80048; 80053; 82962; 85025; 85610; 85730; 87081; 94640; C9113; J0690; J1644; J1815; J1953; J2250; J3010; J7042